=== PATIENT | male | born 1965 | race Caucasian/White ===

== ENCOUNTER 2022-03-14 08:51 | Day surgery (SDC) | payer BC ==
[2022-03-11 12:49] VITALS: BMI 28.0
[2022-03-14 09:28] VITALS: RESP 18; TEMP 97.6
[2022-03-14 11:33] VITALS: BP 110/61; PULSE 79
== END 2022-03-14 11:30 | disposition home or self-care (01) ==
LOC: FASU-ENDO 08:51
PROVIDERS: ATTEND Internal Medicine Gastroenterology
PROC: 0DJD8ZZ Inspection of Lower Intestinal Tract, Via Natural or Artificial Opening Endoscopic (ICD-10-PCS; principal; 2022-03-14 10:39)
DX: Z12.11 Encounter for screening for malignant neoplasm of colon (principal); K57.30 Diverticulosis of large intestine without perforation or abscess without bleeding